=== PATIENT | male | born 1985 | race Caucasian/White ===

== ENCOUNTER 2016-11-24 07:18 | Emergency (ER) | payer BC ==
--- NOTE | 2016-11-24 07:33 | UC ---
Bite Injury/Animal HPI - HPI Summary HPI Summary: 31 YEAR OLD MALE PRESENTS WITH COMPLAINS OF ALLERGIC REACTION TO A BEE STING. - History of Current Complaint Chief Complaint: UCBiteInjury Stated Complaint: BEE STING Time Seen by Provider: 11/24/16 07:33 Hx Obtained From: Patient Severity Currently: Moderate Severity Initially: Moderate Pain Scale Used: 0-10 Numeric - 5 Onset/Duration: Sudden Onset Has Animal Been Immunized?: No Character: Puncture - Allergies/Home Medications Allergies/Adverse Reactions: Allergies Allergy/AdvReac Type Severity Reaction Status Date / Time No Known Allergies Allergy Verified 11/24/16 07:24 Home Medications: Home Medications Ibuprofen [Ibuprofen 200 MG] 2 tab PO TID PRN 11/24/16 [History Confirmed ] diPHENhydraMINE PO* [Benadryl PO 25 MG TAB*] 1 tab PO BID PRN 11/24/16 [History Confirmed 11/24/16] PMH/Surg Hx/FS Hx/Imm Hx Previously Healthy: Yes - Surgical History Surgical History: None Surgery Procedure, Year, and Place: LEFT SHOULDER - 2007 - INTERIOR RECONSTRUCTION - Family History Known Family History: Positive: None - Social History Alcohol Use: None Substance Use Type: None Smoking Status (MU): Never Smoked Tobacco - Immunization History Most Recent Tetanus Shot: 2014 OR 2015 Review of Systems Constitutional: Negative Skin: Rash - BEE STING Eyes: Negative ENT: Negative Respiratory: Negative Cardiovascular: Negative Gastrointestinal: Negative Genitourinary: Negative Motor: Negative Neurovascular: Negative Musculoskeletal: Negative Neurological: Negative Psychological: Negative All Other Systems Reviewed And Are Negative: Yes Physical Exam Triage Information Reviewed: Yes Vital Signs: Initial Vital Signs Temp 37.1 C 11/24/16 07:26 Pulse 112 11/24/16 07:26 Resp 16 11/24/16 07:26 BP 109/75 11/24/16 07:26 Pulse Ox 99 11/24/16 07:26 Eye Exam: Normal ENT Exam: Normal Dental Exam: Normal Neck exam: Normal Neck: Positive: 1 Respiratory Exam: Normal Cardiovascular Exam: Normal Abdominal Exam: Normal Musculoskeletal Exam: Normal Neurological Exam: Normal Psychological Exam: Normal Skin: Positive: rashes - BEE STING Bite Injury Course/Dx - Differential Dx/Diagnosis Provider Diagnoses: BEE STING. ALLERGIC REACTION Discharge - Discharge Plan Condition: Stable Disposition: HOME Prescriptions: Epinephrine [Epipen 2-Tod] 0.3 mg IM ONCE #1 inj LoraTADine TAB(NF) [Claritin 10 MG TAB(NF)] 10 mg PO DAILY #30 tab Ranitidine HCl [Zantac 150 Maximum Streng] 150 mg PO BID #30 tab Triamcinolone 0.1% CREAM (NF) [Kenalog 0.1% Cream (NF)] 1 applic TOPICAL TID PRN #90 gm PRN Reason: Itching predniSONE TAB* [Deltasone TAB*] 40 mg PO DAILY #10 tab Patient Education Materials: Insect Bite or Sting (ED), Anaphylaxis (ED) Referrals: No Primary Care Phys,NOPCP [Primary Care Provider] -
[2016-11-24] MEDS ORDERED: methylPREDNISolone 125 MG* 2 ML VIAL IM ONE (07:34)
[2016-11-24] MEDS ORDERED: EPINEPHrine AMP 1 MG/ML IM ONE (07:34)
[2016-11-24] MEDS ORDERED: diPHENhydraMINE IV* 50 MG/ML 1 ml VIAL (BENADRYL) IM ONE (07:35)
[2016-11-24] MEDS ORDERED: Famotidine TAB* 20 MG PO ONE (07:36)
== END 2016-11-24 08:27 | disposition home or self-care (01) ==
LOC: UCEAST 07:18
DX: T63.441A Toxic effect of venom of bees, accidental (unintentional), initial encounter (principal)
CPT/HCPCS: 93005; 96372; 99202; A9270-GY; G0463; J0171; J1200; J2930

== ENCOUNTER 2018-06-22 11:04 | Emergency (ER) | payer BC, OTHER ==
[2018-06-22 11:21] VITALS: BP 130/82
--- NOTE | 2018-06-22 11:41 | UC ---
General HPI - HPI Summary HPI Summary: States he woke up yesterday AM around 4 am and found to have a tick on his torso. THinks it was there for about 24 hours. Did not appear to engorged. Shortly after removal he noticed, redness and itching around the site. Has not changed much since, slightly darker in color. No pain. NO fever. Otherwise well. Meds; Reviewed - History of Current Complaint Chief Complaint: Nadiya Stated Complaint: TIC BITE Time Seen by Provider: 06/22/18 11:28 Pain Intensity: 0 - Allergy/Home Medications Allergies/Adverse Reactions: Allergies Allergy/AdvReac Type Severity Reaction Status Date / Time bee venom protein (honey bee) Allergy Intermediate Anaphylatic Verified 11:22 Shock PMH/Surg Hx/FS Hx/Imm Hx Previously Healthy: Yes - Surgical History Surgical History: None Surgery Procedure, Year, and Place: LEFT SHOULDER - 2007 - INTERIOR RECONSTRUCTION - Family History Known Family History: Positive: None - Social History Alcohol Use: Weekly Substance Use Type: None Smoking Status (MU): Never Smoked Tobacco - Immunization History Most Recent Tetanus Shot: 2014 OR 2015 Review of Systems All Other Systems Reviewed And Are Negative: Yes Skin: Positive: Rash Physical Exam Triage Information Reviewed: Yes Appearance: Well-Appearing Vital Signs: Initial Vital Signs Temp 97.9 F 06/22/18 11:18 Pulse 64 06/22/18 11:18 Resp 18 06/22/18 11:18 BP 130/82 06/22/18 11:18 Pulse Ox 99 06/22/18 11:18 Vital Signs Reviewed: Yes Eyes: Positive: Conjunctiva Clear Skin: Positive: Other - 4 cm circular erythema, darkened with dried blood in the center, appears to be a mole in the center. Do not appreciate any tick remnants in the skin. No bulls eye lesion. No fluctuance or induration Course/Dx - Course Course Of Treatment: This is a 33 yr old who found a tick on torso approx 24 hours - not engorged Concern that he may have left remnants in skin. Assessment Not consistent with lyme Appears to be local reaction to tick bite Plan Recommend hydrocortisone cream over the counter to the area 2x/day for the next 2-3 days as needed for itching Monitor area Can also use ice to area If worsening redness, swelling or pain, follow up with PCP or urgent care - Diagnoses Provider Diagnosis: Local reaction to insect sting Discharge - Sign-Out/Discharge Documenting (check all that apply): Patient Departure All imaging exams completed and their final reports reviewed: No Studies - Discharge Plan Condition: Good Disposition: HOME Patient Education Materials: Tick Bite (ED) Referrals: Chivo Álvarez MD [Primary Care Provider] - Additional Instructions: Appears to be a local reaction to tick bite Recommend hydrocortisone cream over the counter to the area 2x/day for the next 2-3 days as needed for itching Monitor area Can also use ice to area If worsening redness, swelling or pain, follow up with PCP or urgent care - Billing Disposition and Condition Condition: GOOD Disposition: Home
== END 2018-06-22 11:43 | disposition home or self-care (01) ==
LOC: UCEAST 11:04
DX: S30.861A Insect bite (nonvenomous) of abdominal wall, initial encounter (principal); W57.XXXA Bitten or stung by nonvenomous insect and other nonvenomous arthropods, initial encounter
CPT/HCPCS: 99211; G0463